=== PATIENT | male | born 1995 | race Caucasian/White ===

== ENCOUNTER 2020-05-30 22:37 | Emergency (ER) | payer SELFPAY ==
[2020-05-30 22:44] VITALS: BP 177/87; PULSE 71; RESP 18; TEMP 36.4; O2SAT 96; BMI 19.8
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
--- NOTE | 2020-05-30 23:38 | XRR_ITS ---
PROCEDURE INFORMATION: Exam: XR Left Shoulder Exam date and time: 05/31/2020 12:24 AM Age: 24 years old Clinical indication: Injury or trauma; Fall; Follow-up exam; Dislocation; Shoulder; Left; Additional info: Post reduc TECHNIQUE: Imaging protocol: XR Left shoulder. Views: 2 or more views. COMPARISON: CR XR shoulder LT min 2V* [id number] 05/30/2020 11:11 PM FINDINGS: Bones/joints: Status post reduction of a anteriorly inferior dislocation the left glenohumeral joint with satisfactory alignment and positioning achieved. A Hill-Sachs deformity is seen within the proximal left humerus. Soft tissues: Normal. XR/XR shoulder LT min 2V* [id number] IMPRESSION: 1. Status post reduction of a anteriorly inferior dislocation of the left glenohumeral joint with satisfactory alignment and positioning achieved. 2. Hill-Sachs deformity of the proximal left humerus
[2020-05-31 00:03] VITALS: RESP 21; O2SAT 97
[2020-05-31] MEDS: ondansetron 2 mg/ML SDV 2 mL 4 MG IVP (00:03)
[2020-05-31] MEDS: HYDROmorphone 1 mg/mL INJ 1 mL IVP (00:03)
[2020-05-31 00:12] VITALS: BP 177/97; PULSE 81; RESP 17; O2SAT 98
[2020-05-31] MEDS: midazolam 1 mg/mL INJ 2 mL 2 MG IVP (00:13)
[2020-05-31 00:25] VITALS: BP 161/109; PULSE 57; RESP 22; O2SAT 99
[2020-05-31 00:30] VITALS: BP 175/112; PULSE 67; RESP 22; O2SAT 98
[2020-05-31 01:00] VITALS: BP 114/68; PULSE 98; RESP 16; O2SAT 100
[2020-05-31] MEDS: oxyCODONE-APAP 5-325 mg Tablet 2 TAB PO (01:01)
--- NOTE | 2020-05-31 05:05 | PC.NURSE ---
Moderate sedation for left shoulder reduction started at 0012. RT in the room, had placed Pt on 2L nasal cannula. Crash cart, ambu bag, RSI box in room. 2mg Versed pushed at 0013. 20mg Etomidate pushed at 0015. Pt rolled to prone for left shoulder reduction. Reduction successful and pt rolled back to supine position. Procedure ended at 0020.
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
== END 2020-05-31 01:00 | disposition home or self-care (01) ==
PROVIDERS: Emergency Provider Emergency Medicine
DX: S43.005A Unspecified dislocation of left shoulder joint, initial encounter (principal); V80.018A Animal-rider injured by fall from or being thrown from other animal in noncollision accident, initial encounter
CPT/HCPCS: 12345; 23650; 73030; 96374; 96375; 99283; 99284; J1170; J2250; J2405; J3490